=== PATIENT | female | born 1980 | race Caucasian/White ===

== ENCOUNTER → 2017-06-11 | Outpatient (CLI) | payer OTHER ==
[~2017-06-11] MED LIST: CIPR-344 PO; LOR5/325 PO; MOMR ENA; ONDA4TAB PO; PREN-127 PO
== END ==
LOC: LAB 10:01
PROVIDERS: ATTEND Nurse Practitioner Family
DX: Z51.81 Encounter for therapeutic drug level monitoring (principal); Z79.899 Other long term (current) drug therapy
CPT/HCPCS: 36415; 82040; 82247; 82248; 84075; 84155; 84450; 84460

== ENCOUNTER → 2017-07-15 | Outpatient (CLI) | payer OTHER | LOC: LAB 11:17 | PROVIDERS: ATTEND Nurse Practitioner Family | DX: Z51.81 Encounter for therapeutic drug level monitoring (principal); Z79.899 Other long term (current) drug therapy | CPT/HCPCS: 36415; 82040; 82247; 82310; 82374; 82435; 82565; 82947; 84075; 84132; 84155; 84295; 84450; 84460; 84520 ==

== ENCOUNTER → 2017-08-15 | Outpatient (CLI) | payer OTHER | LOC: LAB 11:28 | PROVIDERS: ATTEND Nurse Practitioner Family | DX: R76.11 Nonspecific reaction to tuberculin skin test without active tuberculosis (principal) | CPT/HCPCS: 36415; 82040; 82247; 82310; 82374; 82435; 82565; 82947; 84075; 84132; 84155; 84295; 84450; 84460; 84520 ==

== ENCOUNTER → 2017-09-17 | Outpatient (CLI) | payer OTHER | LOC: LAB 11:43 | PROVIDERS: ATTEND Nurse Practitioner Family | DX: A15.0 Tuberculosis of lung (principal) | CPT/HCPCS: 36415; 82040; 82247; 82310; 82374; 82435; 82565; 82947; 84075; 84132; 84155; 84295; 84450; 84460; 84520 ==

== ENCOUNTER → 2017-10-22 | Outpatient (CLI) | payer OTHER ==
--- NOTE | 2017-10-22 12:05 | RADIOLOGY IMAGING REPORT ---
FACILITY: [facility] - [place] PATIENT NAME: Leda Garcia : 1980 MR: [id number] V: [id number] EXAM DATE: ORDERING PHYSICIAN: KAMILAH SHARMA TECHNOLOGIST: Location: [facility] [place] Patient: Leda Garcia : 1980 Visit/Account:[id number] Date of Sevice: 10/22/2017 CT scan of the abdomen and pelvis without contrast. HISTORY: Left flank pain. COMPARISON: None. 3 mm thick and [address] images were obtained of the abdomen and pelvis. No intravenous or oral contrast. The study is limited to the urinary tract for evaluation of stone disease. One of the following dose optimization techniques was utilized in the performance of this exam: Automated exposu re control; adjustment of the mA and/or kV according to the patient's size; or use of an iterative r econstruction technique. Specific details can be referenced in the facility's radiology CT exam oper ational policy.. FINDINGS: The lung bases are clear. Breast implants are present bilaterally. The liver and spleen are normal in size. The gallbladder is incompletely distended. The bile ducts ar e not well visualized. The pancreas is normal in size. The kidneys and adrenal glands are normal in s ize. No renal or ureteral calcifications are identified. The ureters are not well visualized. The uri nary bladder is incompletely distended. A few small calcifications are present along the anterior asp ect of the uterus. The uterus is normal in size. The uterus is slightly tipped to the right. A few fo llicles are probably present in the ovaries. Unopacified bowel loops are scattered in the abdomen and pelvis. The appendix is normal in size. The abdominal aorta is normal in size. No acute bony abnorma lities. IMPRESSION: Negative. The source of the patient's left flank plain is not identified by this means. Report Dictated By: John Ferraro MD at 10/22/2017 11:57 AM Report E-Signed By: John Ferraro MD at 10/22/2017 12:03 PM WSN:[id number]
== END ==
LOC: CT 11:28
PROVIDERS: ATTEND Nurse Practitioner Family
DX: Z98.82 Breast implant status (principal); R10.32 Left lower quadrant pain; M54.5 Low back pain
CPT/HCPCS: 74176

== ENCOUNTER → 2017-10-31 | Outpatient (CLI) | payer OTHER ==
[~2017-10-31] MED LIST changes: +MICO45CR VG; +TRIA15OI20 TP
== END ==
LOC: LAB 11:11
PROVIDERS: ATTEND Obstetrics & Gynecology
DX: N89.8 Other specified noninflammatory disorders of vagina (principal)
CPT/HCPCS: 87210

== ENCOUNTER → 2017-12-04 | Outpatient (CLI) | payer OTHER | LOC: LAB 10:17 | PROVIDERS: ATTEND Nurse Practitioner Family | DX: R53.83 Other fatigue (principal); R63.5 Abnormal weight gain | CPT/HCPCS: 36415; 82040; 82247; 82306; 82310; 82374; 82435; 82565; 82607; 82947; 83036; 84075; 84132; 84155; 84295; 84439; 84443; 84450; 84460; 84480; 84520; 86376; 86800 ==